=== PATIENT | male | born 1960 | race Caucasian/White ===

== ENCOUNTER 2019-09-04 13:16 | Emergency (ER) | payer OTHER ==
[~2019-09-04] VITALS: Ht 152.4 cm; Wt 59.0 kg
[2019-09-04] MEDS ORDERED: NORCO 5-325 TA1 EAC1 PO (15:56)
[2019-09-04] MEDS ORDERED: DOXYCYCLINE 10100 MG PO (15:56)
[2019-09-04 16:12] VITALS: BP 131/83
== END 2019-09-04 16:13 | disposition left against medical advice (07) ==
LOC: M.ERS 13:16
DX: L02.214 Cutaneous abscess of groin (principal); L02.416 Cutaneous abscess of left lower limb; M06.9 Rheumatoid arthritis, unspecified; J44.9 Chronic obstructive pulmonary disease, unspecified; Z88.0 Allergy status to penicillin

== ENCOUNTER 2019-09-06 15:01 | Inpatient (IN) | payer OTHER ==
[~2019-09-06] VITALS: Ht 170.2 cm; Wt 59.0 kg
[~2019-09-06 15:01] MED LIST: DOXYCYCLINE 10100 MG PO; NORCO 5-325 TA1 EAC1 PO
[2019-09-06 15:08] VITALS: BP 139/92
[2019-09-06 15:26] LABS: URINE BILIRUBIN NEGATIVE (Negative); URINE BLOOD 2+ (Negative); URINE CLARITY CLEAR; URINE COLOR YELLOW; URINE GLUCOSE-RANDOM NEGATIVE (Negative); URINE KETONES NEGATIVE (Negative); URINE LEUKOCYTES-REFLEX NEGATIVE (Negative); URINE NITRITE-REFLEX NEGATIVE (Negative); URINE PROTEIN NEGATIVE (Negative); URINE SPECIFIC GRAVITY 1.025 (1.005-1.030)
[2019-09-06 15:39] LABS: BACTERIA-REFLEX 1-9 Few /HPF (None Seen); CASTS None Seen /LPF (None Seen); MUCUS 0-3 Light strn/LPF (None Seen); SQUAMOUS 0-3 Few /LPF (0-3)
[2019-09-06 15:40] LABS: CALCIUM OXALATE >10 Many /LPF (None Seen); URINE RBC 3-10 Few /HPF (0-2); URINE WBC-REFLEX 0-5 Rare /HPF (0-5)
[2019-09-06 16:16] LABS: ABSOLUTE BASOPHILS 0.1 thou/uL (0.0-0.2); ABSOLUTE EOSINOPHILS 0.2 thou/uL (0.0-0.7); ABSOLUTE LYMPHOCYTES 2.2 thou/uL (0.8-5.3); ABSOLUTE MONOCYTES 0.8 thou/uL (0.0-1.2); ABSOLUTE NEUTROPHILS 5.8 thou/uL (1.6-8.1); BASOPHILS 0.9 %; EOSINOPHILS 2.3 %; HEMATOCRIT 38.3 % (42.0-52.0); HEMOGLOBIN 13.3 gm/dL (14.0-18.0); LYMPHOCYTES 23.7 %; MCH 31.6 pg (26.0-34.0); MCHC 34.8 g/dL (28.0-37.0); MCV 90.8 fL (80.0-100.0); MONOCYTES 9.3 %; MPV 7.3 fl. (7.2-11.1); NUCLEATED RBCS 0 /100WBC; PLATELET COUNT* 356 thou/uL (150-400); POLYS 63.8 %; RBC 4.21 mil/uL (4.50-6.00); RDW-CV 14.3 % (10.5-14.5); WBC 9.1 thou/uL (4.0-11.0)
[2019-09-06 16:24] LABS: CALCIUM 8.4 mg/dL (8.5-10.1); POTASSIUM 3.9 mmol/L (3.5-5.1)
[2019-09-06 16:29] LABS: ALBUMIN 2.9 g/dL (3.4-5.0); TOTAL BILIRUBIN 0.2 mg/dL (<0.1-1.0); TOTAL PROTEIN 7.1 g/dL (6.4-8.2)
[2019-09-06 18:17] VITALS: BP 125/80
[2019-09-06 18:58] VITALS: BP 145/76
[2019-09-06 21:00] VITALS: BP 102/69
--- NOTE | 2019-09-07 06:40 | NUR ---
PATIENT WAS ADMITTED PRIOR TO SHIFT. CHANGE. IV ANTIBIOTCS AND MEDS WERE GIVEN ORDERED. PATIENT HAD NO COMPLAINTS OF PAIN. DRESSING TO R GROIN AND LEFT UPPER LEG REMAIN INTACT. WILL CONTINUE TO MONITOR.
[2019-09-07 08:00] VITALS: BP 148/86
[2019-09-07 08:58] LABS: MCH 31.2 pg (26.0-34.0); MCHC 34.4 g/dL (28.0-37.0); MCV 90.7 fL (80.0-100.0); RBC 3.86 mil/uL (4.50-6.00); RDW-CV 14.2 % (10.5-14.5); WBC 7.3 thou/uL (4.0-11.0)
[2019-09-07 09:05] LABS: CALCIUM 7.9 mg/dL (8.5-10.1); CREATININE 0.9 mg/dL (0.6-1.3); MAGNESIUM 1.7 mg/dL (1.8-2.4); PHOSPHORUS* 3.2 mg/dL (2.5-4.9); POTASSIUM 3.9 mmol/L (3.5-5.1)
[2019-09-07 16:00] VITALS: BP 156/81
--- NOTE | 2019-09-07 17:00 | NUR ---
SW met with pt to complete initial assessment, introduce self, and SW role. Pt alert, oriented. Pt lives at home alone with his dog; a friend is taking care of his dog while he is in the hospital. 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 SW provided resource list and PCP list. Pt is unsure of any other dc needs at this time. SW to continue to follow to assist with safe dc planning.
--- NOTE | 2019-09-07 18:52 | NUR ---
PT A&OX4 VSS. PT UP AD ABUNDIO, GAIT STEADY. PT HAS DRESSINGS TO R GROIN AND L THIGH AREA R/T ABSCESSES THAT HAVE BEEN I&D X2. PT HAS IV TO LAC, NS RUNNING AT 100ML/HR. PT ON IV CLINDAMYCIN. PT USES NICOTINE PATCH FOR SMOKING CESSATION. WOUND CULTURES WERE SENT TO LAB PRIOR TO ASSUMING CARE OF THIS PT. PT REQUESTED PAIN MEDICATION X1 THIS AFTERNOON. PT RESTS IN ROOM WITH CALL LIGHT IN REACH. WILL CONTINUE TO MONITOR.
[2019-09-07 20:00] VITALS: BP 153/85
[2019-09-08 04:37] LABS: ABSOLUTE BASOPHILS 0.1 thou/uL (0.0-0.2); ABSOLUTE EOSINOPHILS 0.2 thou/uL (0.0-0.7); ABSOLUTE LYMPHOCYTES 2.5 thou/uL (0.8-5.3); ABSOLUTE MONOCYTES 0.6 thou/uL (0.0-1.2); ABSOLUTE NEUTROPHILS 3.1 thou/uL (1.6-8.1); EOSINOPHILS 3.7 %; HEMATOCRIT 35.8 % (42.0-52.0); HEMOGLOBIN 12.3 gm/dL (14.0-18.0); LYMPHOCYTES 37.9 %; MCH 31.2 pg (26.0-34.0); MCHC 34.5 g/dL (28.0-37.0); MCV 90.5 fL (80.0-100.0); MONOCYTES 9.4 %; MPV 7.2 fl. (7.2-11.1); NUCLEATED RBCS 0 /100WBC; PLATELET COUNT* 369 thou/uL (150-400); RBC 3.96 mil/uL (4.50-6.00); RDW-CV 14.4 % (10.5-14.5); WBC 6.5 thou/uL (4.0-11.0)
[2019-09-08 04:46] LABS: ALBUMIN 2.5 g/dL (3.4-5.0); CALCIUM 8.4 mg/dL (8.5-10.1); POTASSIUM 4.1 mmol/L (3.5-5.1); TOTAL BILIRUBIN 0.2 mg/dL (<0.1-1.0); TOTAL PROTEIN 6.1 g/dL (6.4-8.2)
--- NOTE | 2019-09-08 05:12 | NUR ---
PT REQUESTED PAIN MEDICATION BEGINNING OF SHIFT THAT BROUGHT RELIEF ALLOWING PT TO REST COMFORTABLY T/O SHIFT. PT IS PROGRESSING TOWARDS GOALS. CALL LIGHT IN REACH
--- NOTE | 2019-09-08 07:11 | CON ---
[address] [address] CONSULTATION Name: MASHA LAND Room: [address] ADM IN M.R.#: [id number] Admission: 09/06/19 Attend Phys: Galileo Cotton Discharge: Date of : 58 Report #: [id number] THIS REPORT FOR: //name// CC: BLANQUITA physician/PCP Duane Fairbanks DATE OF SERVICE: 09/07/2019 INFECTIOUS DISEASE CONSULTATION ATTENDING PHYSICIAN: Dr. Barnett. REASON FOR EVALUATION: Right inguinal abscess, left leg abscess. HISTORY OF PRESENT ILLNESS: Chart reviewed, patient examined. This is a 59-year-old man with a known history of COPD, has rheumatoid arthritis, presented to the Emergency Room with complaining of inflammatory masses noted in the right groin as well as left leg. These are associated with significant pain. There are inflammatory changes of redness and increased temperature. Apparently, he had been evaluated previously, had resisted incision and drainage procedure, did undergo procedures earlier, did gain some relief. He is concerned potentially he was exposed to a spider. He notes no previous similar type issues. Does smoke cigarettes. No illicit drug use. No ethanol. ALLERGIES: PENICILLINS. CURRENT MEDICATIONS: Include nicotine, ondansetron, fentanyl, clindamycin. PAST MEDICAL HISTORY: Include COPD, asthma, and rheumatoid arthritis. SOCIAL HISTORY: As noted above, smoker. No ethanol, no illicit drug use. FAMILY HISTORY: Noncontributory. REVIEW OF SYSTEMS: Otherwise, unremarkable. Denies any recent fevers or chills. Appetite has been normal. Weight has been stable. No pulmonary related complaints, nor GI related complaints. PHYSICAL EXAMINATION: GENERAL: Appears somewhat chronically ill, perhaps undernourished. VITAL SIGNS: Temperature 97.8, pulse 67, respirations 17, blood pressure 148/86. SKIN: Warm, dry, no rashes. HEENT: Normocephalic. Extraocular muscles intact. NECK: Supple. LUNGS: Diminished breath sounds, [place] [address] CONSULTATION Name: MASHA LAND Room: [address] IN [facility].#: [id number] Admission: 09/06/19 Attend Phys: Galileo Cotton Discharge: Date of : 58 Report #: [id number] HEART: Regular. I do not appreciate a murmur. ABDOMEN: Soft, nontender, nondistended. EXTREMITIES: He has got dressings over the right groin, in left mid anterior thigh. Distal lower extremities were unremarkable. LABORATORY AND X-RAY DATA: Urinalysis showed 0-5 white cells, 2+ blood, no protein. CBC: White count of 9.1, H and H 13.3 and 38.3, platelets of 356. Electrolytes: Sodium 132, potassium 3.9, chloride 96, bicarbonate is 29, anion gap of 7, BUN and creatinine 15 and 1.0, albumin 2.9, total protein 7.1. LFTs unremarkable. Estimated GFR of 76. Lactic acid 0.7. Blood cultures, sterile thus far. ASSESSMENT AND PLAN: Multifocal skin and soft tissue infection with abscesses. I would suspect a staph or strep etiology. Clindamycin should be an adequate coverage. We will await those culture results. Continue wound care as prescribed. We will monitor expectantly. <ELECTRONICALLY SIGNED> By: Hayden Villarreal MD 09/08/19 0711 1720 [id number] Villarreal MD /nt
[2019-09-08 08:10] VITALS: BP 144/84
[2019-09-08 13:59] VITALS: BP 144/84
[2019-09-08] MEDS ORDERED: CLEOCIN HCL300 MG PO (15:00)
--- NOTE | 2019-09-08 15:43 | NUR ---
PT A&OX4 VSS. PT UP AD ABUNDIO GAIT STEADY. PO MEDICATION ORDERED TO ADDRESS C/O PAIN. NONE REQUESTED THIS SHIFT. PT DRESSING CHANGED THIS AM BY DR Kenny OTTO. DRESSING REMAINS C/D/I AT THIS TIME. IV TO LAC DC'D PRIOR TO LEAVING UNIT. NO REDNESS/BLEEDING AT SITE. PT STATES UNDERSTANDING OF DC INSTRUCTIONS AND RX PROVIDED. PT WAITING FOR RIDE AT THIS TIME.
== END 2019-09-08 14:30 | disposition home or self-care (01) | DRG 603 ==
LOC: M.ERS 15:01 → M.TBA-ER 16:35 → M.3W 18:38
PROVIDERS: Internal Medicine; Physician Assistant; ADMIT Internal Medicine
PROC: 0Y963ZZ Drainage of Left Inguinal Region, Percutaneous Approach (ICD-10-PCS; principal; 2019-09-06)
DX: L02.214 Cutaneous abscess of groin (principal); J45.901 Unspecified asthma with (acute) exacerbation; L02.416 Cutaneous abscess of left lower limb; J44.9 Chronic obstructive pulmonary disease, unspecified; M06.9 Rheumatoid arthritis, unspecified; F17.210 Nicotine dependence, cigarettes, uncomplicated; M19.90 Unspecified osteoarthritis, unspecified site; Z91.19 Patient's noncompliance with other medical treatment and regimen; Z88.0 Allergy status to penicillin; Z79.899 Other long term (current) drug therapy